=== PATIENT | female | born 1960 | race African-American/Black ===

== ENCOUNTER 2016-08-02 18:23 | Emergency (ER) | payer MEDICAID ==
[~2016-08-02] VITALS: Ht 170.2 cm; Wt 110.0 kg
[2016-08-02] MEDS ORDERED: AMLO2.5T45 PO (18:29)
[2016-08-02] MEDS ORDERED: KETOROLAC 60MG/2ML VIAL IM ONE (19:00)
[2016-08-02 19:04] VITALS: BP 132/89
== END 2016-08-02 22:55 | disposition home or self-care (01) ==
LOC: ER 18:23
DX: S83.004A Unspecified dislocation of right patella, initial encounter (principal); I10 Essential (primary) hypertension; X50.0XXA Overexertion from strenuous movement or load, initial encounter; Y93.89 Activity, other specified; Y92.89 Other specified places as the place of occurrence of the external cause; Y99.8 Other external cause status
CPT/HCPCS: 73564; 96372; 99284; J1885; L1830; Z7610

== ENCOUNTER 2022-01-10 06:58 | Emergency (ER) | payer MEDICAID ==
[~2022-01-10] VITALS: Ht 162.6 cm; Wt 59.0 kg
[~2022-01-10 06:58] MED LIST: AMLO2.5T45 PO
[2022-01-10] MEDS ORDERED: ONDANSETRON 4MG ODT PO ONE (07:15)
[2022-01-10] MEDS ORDERED: HYDROCODONE/ACETAMINOPHEN 5/325MG TABLET PO ONE (07:15)
[2022-01-10] MEDS ORDERED: IBUP-2029 MT (10:22)
[2022-01-10] MEDS ORDERED: METH-773 MT (10:22)
[2022-01-10 10:58] VITALS: BP 128/89
== END 2022-01-10 11:01 | disposition home or self-care (01) ==
LOC: ER 06:58
DX: M54.40 Lumbago with sciatica, unspecified side (principal); I10 Essential (primary) hypertension
CPT/HCPCS: 72100; 73562; 99284; Q0162

== ENCOUNTER 2022-07-08 10:51 | Emergency (ER) | payer MEDICAID, OTHER ==
[~2022-07-08] VITALS: Ht 167.6 cm; Wt 82.0 kg
[~2022-07-08 10:51] MED LIST changes: +IBUP-2029 MT; +METH-773 MT
[2022-07-08] MEDS ORDERED: IBUPROFEN 800MG TABLET PO ONE (16:15)
[2022-07-08] MEDS ORDERED: ACETAMINOPHEN 325MG TABLET PO ONE (16:15)
[2022-07-08] MEDS ORDERED: IBUPROFEN 400MG TABLET PO NR (16:30)
[2022-07-08] MEDS ORDERED: DICL75TA5 MT (17:12)
[2022-07-08] MEDS ORDERED: COLCHICINE 0.6MG TABLET PO NR (17:15)
[2022-07-08 17:54] VITALS: BP 138/82
== END 2022-07-08 17:56 | disposition home or self-care (01) ==
LOC: ER 10:51
DX: M10.9 Gout, unspecified (principal); M79.674 Pain in right toe(s); I10 Essential (primary) hypertension; Z88.0 Allergy status to penicillin; Z98.890 Other specified postprocedural states
CPT/HCPCS: 73660; 99284

== ENCOUNTER 2024-12-25 21:03 | Inpatient (IN) | payer OTHER ==
[~2024-12-25] VITALS: Ht 165.1 cm; Wt 74.4 kg
[~2024-12-25 21:03] MED LIST changes: -AMLO2.5T45 PO; +AMLO5TAB88 PO; +ASPI-1406 PO; +CLOP-31 PO; +GABA-1180 PO; -IBUP-2029 MT; +LEVO750T68 MT; +LIP40 PO; -METH-773 MT; +TOPUD MT; +TRAM50TA3 PO
[2024-12-25 21:38] VITALS: O2SAT 99
[2024-12-25 21:58] LABS: BASOPHILS % 0.7 % (0.0-2.0); EOSINOPHILS % 3.3 % (0.0-5.0); HEMATOCRIT. 28.7 % (36.0-48.0); HEMOGLOBIN. 9.3 g/dL (12.0-16.0); LYMPHOCYTES % 26.9 % (20.0-50.0); MEAN PLATELET VOLUME 7.2 fl (7.4-10.4); MONOCYTES % 11.9 % (2.0-8.0); NEUTROPHILS % 57.2 % (40.0-76.0); PLATELET 378 x1000/uL (130-400); RED BLOOD CELL COUNT 3.06 mill/uL (4.2-5.4); RED CELL DISTRIBUTION WIDTH 15.0 % (11.6-14.6)
[2024-12-25] MEDS: SODIUM CHLORIDE 0.9% (SEPSIS BOLUS) IV ONE (22:08)
[2024-12-25] MEDS: PIPERACILLIN/TAZO 3.375G/50ML 50 ML IV ONE (22:13)
[2024-12-25 22:25] LABS: CREATININE 0.9 mg/dL (0.6-1.0); UREA NITROGEN BLOOD 7 mg/dL (9-23)
[2024-12-25 22:33] VITALS: BP 143/80; PULSE 84; RESP 20; TEMP 35.8; O2SAT 96
[2024-12-25 22:35] LABS: C REACTIVE PROTEIN HIGH SENS 12.92 mg/l (<1.00)
[2024-12-25] MEDS ORDERED: CLINDAMYCIN 600 MG in DEXTROSE 5% WATER 50 ML IV ONE (23:00)
[2024-12-25] MEDS: VANCOMYCIN 1G PREMIX 200 ML IV ONE (23:58)
[2024-12-26 00:12] LABS: CLARITY URINE CLEAR (CLEAR); COLOR URINE YELLOW (YELLOW); GLUCOSE URINE NEGATIVE (NEGATIVE); KETONES URINE NEGATIVE (NEGATIVE); LEUKOCYTE ESTERASE URINE NEGATIVE (NEGATIVE); NITRITE URINE NEGATIVE (NEGATIVE); OCCULT BLOOD URINE NEGATIVE (NEGATIVE); PH URINE 6.5 (4.5-8.0); PROTEIN URINE NEGATIVE (NEGATIVE); SPECIFIC GRAVITY URINE 1.009 (1.005-1.030); UROBILINOGEN URINE 0.2 E.U./dL (0.2-1.0)
[2024-12-26] MEDS: HYDROCODONE/ACETAMINOPHEN 10/325MG TABLET PO PRN (01:37)
[2024-12-26] MEDS: CLINDAMYCIN 600MG PREMIX 50 ML IV SCH (01:50)
[2024-12-26 02:40] VITALS: BP 104/54; PULSE 103; RESP 18; TEMP 37.1964
[2024-12-26 04:00] VITALS: BP 105/52; PULSE 100; RESP 20; TEMP 36.2; O2SAT 97
[2024-12-26 08:00] VITALS: BP 104/53; PULSE 89; RESP 18; TEMP 36.4; O2SAT 97
[2024-12-26] MEDS: GABAPENTIN 300MG CAPSULE PO SCH (09:33)
[2024-12-26] MEDS: PIPERACILLIN/TAZO 3.375G/50ML 50 ML IV SCH (09:33)
[2024-12-26] MEDS ORDERED: ACETAMINOPHEN 325MG TABLET PO PRN (11:00)
[2024-12-26] MEDS ORDERED: ONDANSETRON HCL 4MG/2ML INJ IV PRN (11:00)
[2024-12-26] MEDS ORDERED: NALOXONE HCL 0.4MG/ML VIAL IV PRN (11:15)
[2024-12-26 12:00] VITALS: BP 102/57; PULSE 72; RESP 17; TEMP 36.2; O2SAT 100
[2024-12-26] MEDS: POTASSIUM CHLORIDE 20MEQ TABLET SR PO SCH (13:51)
[2024-12-26] MEDS: MEROPENEM 1G/100ML 100 ML IV SCH (14:18)
[2024-12-26] MEDS: VANCOMYCIN 1G PREMIX 200 ML IV SCH (14:20)
[2024-12-26 16:00] VITALS: BP 120/69; PULSE 70; RESP 18; TEMP 35.6; O2SAT 100
[2024-12-26 20:00] VITALS: BP 115/60; PULSE 70; RESP 18; TEMP 36.6; O2SAT 100
[2024-12-26] MEDS: ATORVASTATIN CALCIUM 40MG TABLET PO SCH (20:31)
[2024-12-27] VITALS: BP 118/68; PULSE 72; RESP 18; TEMP 36.9; O2SAT 100
[2024-12-27 04:00] VITALS: BP 110/70; PULSE 74; RESP 18; TEMP 36.3; O2SAT 98
[2024-12-27 07:41] LABS: CREATININE 0.8 mg/dL (0.6-1.0); UREA NITROGEN BLOOD 6 mg/dL (9-23)
[2024-12-27 07:54] LABS: BASOPHILS % 0.5 % (0.0-2.0); EOSINOPHILS % 11.0 % (0.0-5.0); HEMATOCRIT. 26.9 % (36.0-48.0); HEMOGLOBIN. 8.8 g/dL (12.0-16.0); LYMPHOCYTES % 24.0 % (20.0-50.0); MEAN PLATELET VOLUME 7.6 fl (7.4-10.4); MONOCYTES % 8.4 % (2.0-8.0); NEUTROPHILS % 56.1 % (40.0-76.0); PLATELET 343 x1000/uL (130-400); RED BLOOD CELL COUNT 2.90 mill/uL (4.2-5.4); RED CELL DISTRIBUTION WIDTH 15.2 % (11.6-14.6)
[2024-12-27 08:00] VITALS: BP 133/80; PULSE 84; RESP 18; TEMP 36.4; O2SAT 98
[2024-12-27] MEDS: GABAPENTIN 300MG CAPSULE PO SCH (08:46)
[2024-12-27] MEDS: CLOPIDOGREL 75MG TABLET PO SCH (08:46)
[2024-12-27] MEDS: ENOXAPARIN 40MG/0.4ML SYR SUBCUT SCH (08:47)
[2024-12-27] MEDS: ASPIRIN 81MG EC TABLET PO SCH (08:47)
[2024-12-27] MEDS: PANTOPRAZOLE SODIUM 40 MG/VIAL IV SCH (08:48)
[2024-12-27] MEDS: AMLODIPINE 5MG TABLET PO SCH (08:59)
[2024-12-27 12:00] VITALS: BP 138/68; PULSE 84; RESP 18; TEMP 36.3; O2SAT 98
[2024-12-27] MEDS: COLLAGENASE 250UNIT/GM OINT 30GM TOP SCH (14:38)
[2024-12-27 16:00] VITALS: BP 132/63; PULSE 81; RESP 18; TEMP 36.4; O2SAT 97
[2024-12-27 20:00] VITALS: BP 136/70; PULSE 77; RESP 19; TEMP 36.4; O2SAT 99
[2024-12-28] VITALS: BP 138/72; PULSE 78; RESP 18; TEMP 36.5; O2SAT 97
[2024-12-28 04:00] VITALS: BP 115/72; PULSE 72; RESP 18; TEMP 36.7; O2SAT 99
[2024-12-28 08:00] VITALS: BP 155/64; PULSE 78; RESP 18; TEMP 36.4; O2SAT 100
[2024-12-28] MEDS ORDERED: POLYMYXIN B SULFATE 500000 UNITS/VIAL ONE (10:45)
[2024-12-28] MEDS ORDERED: VANCOMYCIN HCL 1GM VIAL ONE (10:45)
[2024-12-28] MEDS ORDERED: BUPIVACAINE HCL/PF 0.5% (5MG/ML) 10ML ONE (10:46)
[2024-12-28] MEDS ORDERED: LIDOCAINE HCL 1% 10 MG/ML 10ML VIAL ONE (10:46)
[2024-12-28 12:00] VITALS: BP 148/43; PULSE 91; RESP 18; TEMP 35.4; O2SAT 100
[2024-12-28 12:33] LABS: CREATININE 0.8 mg/dL (0.6-1.0)
[2024-12-28 12:34] LABS: UREA NITROGEN BLOOD < 5 mg/dL (9-23)
[2024-12-28 12:38] LABS: INR 0.9
[2024-12-28 12:57] LABS: PLATELET 376 x1000/uL (130-400); RED BLOOD CELL COUNT 2.94 mill/uL (4.2-5.4); RED CELL DISTRIBUTION WIDTH 15.2 % (11.6-14.6)
[2024-12-28 16:00] VITALS: BP 151/63; PULSE 92; RESP 18; TEMP 36.3; O2SAT 100
[2024-12-28] MEDS ORDERED: DEXAMETHASONE 4MG/ML 1ML VIAL ONE (17:14)
[2024-12-28] MEDS ORDERED: FENTANYL CITRATE/PF 50MCG/ML 2ML VIAL ONE (17:14)
[2024-12-28] MEDS ORDERED: LIDOCAINE HCL 1% 20ML VIAL ONE (17:14)
[2024-12-28] MEDS ORDERED: PROPOFOL 200MG/20ML VIAL IV ONE (17:14)
[2024-12-28] MEDS ORDERED: ONDANSETRON HCL 4MG/2ML INJ ONE (17:14)
[2024-12-28] MEDS ORDERED: ACETAMINOPHEN 1000MG/100ML 100 ML IV ONE (17:18)
[2024-12-28] MEDS ORDERED: FAMOTIDINE 20MG/2ML VIAL IV ONE (17:19)
[2024-12-28] MEDS ORDERED: FENTANYL CITRATE/PF 50MCG/ML 2ML VIAL IV PRN (17:30)
[2024-12-28] MEDS ORDERED: ONDANSETRON HCL 4MG/2ML INJ IV PRN (17:30)
[2024-12-28] MEDS ORDERED: HYDROMORPHONE HCL/PF 1MG/ML INJ IV PRN (17:33)
[2024-12-28 20:00] VITALS: BP 119/73; PULSE 94; RESP 18; TEMP 36.6; O2SAT 98
[2024-12-29] VITALS: BP 133/69; PULSE 95; RESP 17; TEMP 36.4; O2SAT 98
[2024-12-29 04:00] VITALS: BP 156/67; PULSE 81; RESP 17; TEMP 37.3; O2SAT 97
[2024-12-29 08:00] VITALS: BP 148/49; PULSE 78; RESP 17; TEMP 36.4; O2SAT 100
[2024-12-29 12:00] VITALS: BP 138/61; PULSE 74; RESP 17; TEMP 36.4; O2SAT 100
[2024-12-29 16:00] VITALS: BP 125/51; PULSE 95; RESP 17; TEMP 36.4; O2SAT 100
[2024-12-29 20:00] VITALS: BP 102/51; PULSE 81; RESP 18; TEMP 36.6; O2SAT 97
[2024-12-30] VITALS: BP 107/47; PULSE 84; RESP 18; TEMP 36.5; O2SAT 98
[2024-12-30 04:00] VITALS: BP 123/55; PULSE 85; RESP 18; TEMP 36.3; O2SAT 100
[2024-12-30 08:00] VITALS: BP 139/63; PULSE 71; RESP 18; TEMP 36.3; O2SAT 100
[2024-12-30] MEDS ORDERED: HYDR-4009 MT (10:04)
[2024-12-30 12:00] VITALS: BP 124/63; PULSE 82; RESP 18; TEMP 36.2; O2SAT 99
[2024-12-30 15:31] VITALS: BP 124/124; PULSE 71; RESP 63; TEMP 97.1
[2024-12-30 16:00] VITALS: BP 141/57; PULSE 81; RESP 18; TEMP 36.2; O2SAT 100
== END 2024-12-30 16:34 | disposition home or self-care (01) | DRG 305 ==
LOC: ER 21:10 → EDBEDREQ 23:29 → ENRESERV 12-26 01:11 → 6WST 12-26 03:37 → 7EST 12-27 23:54
PROVIDERS: ADMIT Internal Medicine; ATTEND Internal Medicine
PROC: 0Y6N0Z9 Detachment at Left Foot, Partial 1st Ray, Open Approach (ICD-10-PCS; principal; 2024-12-28)
PROC: 0Y6N0ZB Detachment at Left Foot, Partial 2nd Ray, Open Approach (ICD-10-PCS; 2024-12-28)
PROC: 0Y6N0ZC Detachment at Left Foot, Partial 3rd Ray, Open Approach (ICD-10-PCS; 2024-12-28)
PROC: 0Y6N0ZD Detachment at Left Foot, Partial 4th Ray, Open Approach (ICD-10-PCS; 2024-12-28)
PROC: 0Y6N0ZF Detachment at Left Foot, Partial 5th Ray, Open Approach (ICD-10-PCS; 2024-12-28)
DX: E11.69 Type 2 diabetes mellitus with other specified complication (principal); E11.52 Type 2 diabetes mellitus with diabetic peripheral angiopathy with gangrene; E11.40 Type 2 diabetes mellitus with diabetic neuropathy, unspecified; M86.9 Osteomyelitis, unspecified; L03.116 Cellulitis of left lower limb; D64.9 Anemia, unspecified; E87.6 Hypokalemia; E11.621 Type 2 diabetes mellitus with foot ulcer; L97.529 Non-pressure chronic ulcer of other part of left foot with unspecified severity; F10.90 Alcohol use, unspecified, uncomplicated; Y90.8 Blood alcohol level of 240 mg/100 ml or more; F17.200 Nicotine dependence, unspecified, uncomplicated; I10 Essential (primary) hypertension; Z79.02 Long term (current) use of antithrombotics/antiplatelets; Z79.82 Long term (current) use of aspirin; Z82.49 Family history of ischemic heart disease and other diseases of the circulatory system; Z89.411 Acquired absence of right great toe; Z79.899 Other long term (current) drug therapy
CPT/HCPCS: 36415; 71045; 73630; 73700; 80048; 81003; 82962; 83605; 83880; 84145; 85025; 85027; 85651; 86141; 88304; 88311; 93923; 97116; 97162; 97530; 97535; 97542; 99291; A4606; G0378; J0665; J1100; J1308; J1650; J2003; J2185; J2405; J2470; J2543; J2704; J3010; J3373; J3490; J7030; J0131

== ENCOUNTER 2025-01-17 15:59 | Inpatient (IN) | payer OTHER ==
[~2025-01-17] VITALS: Ht 167.6 cm; Wt 68.1 kg
[~2025-01-17 15:59] MED LIST changes: +HYDR-4009 MT
[2025-01-17 16:30] VITALS: O2SAT 100
[2025-01-17 17:37] LABS: BASOPHILS % 0.5 % (0.0-2.0); EOSINOPHILS % 4.2 % (0.0-5.0); HEMATOCRIT. 27.0 % (36.0-48.0); HEMOGLOBIN. 8.9 g/dL (12.0-16.0); LYMPHOCYTES % 28.5 % (20.0-50.0); MEAN PLATELET VOLUME 7.5 fl (7.4-10.4); MONOCYTES % 8.4 % (2.0-8.0); NEUTROPHILS % 58.4 % (40.0-76.0); PLATELET 361 x1000/uL (130-400); RED BLOOD CELL COUNT 2.96 mill/uL (4.2-5.4); RED CELL DISTRIBUTION WIDTH 15.3 % (11.6-14.6)
[2025-01-17 17:45] LABS: INR 1.0
[2025-01-17 17:47] LABS: CREATININE 0.8 mg/dL (0.6-1.0); UREA NITROGEN BLOOD 6 mg/dL (9-23)
[2025-01-17 20:00] VITALS: BP 137/69; PULSE 71; RESP 18; TEMP 36.3; TEMP 36.4736; O2SAT 99
[2025-01-17] MEDS ORDERED: NALOXONE HCL 0.4MG/ML VIAL IV PRN (22:30)
[2025-01-17] MEDS: HYDROCODONE/ACETAMINOPHEN 10/325MG TABLET PO PRN (22:30)
[2025-01-18] VITALS: BP 119/61; PULSE 68; RESP 18; TEMP 36.4; O2SAT 100
[2025-01-18] MEDS: SODIUM CHLORIDE 0.9% 1,000 ML IV SCH (00:14)
[2025-01-18 04:00] VITALS: BP 119/51; PULSE 72; RESP 18; TEMP 36.2; O2SAT 97
[2025-01-18] MEDS: GABAPENTIN 300MG CAPSULE PO SCH (06:32)
[2025-01-18 07:32] LABS: BASOPHILS % 0.7 % (0.0-2.0); EOSINOPHILS % 5.9 % (0.0-5.0); HEMATOCRIT. 27.6 % (36.0-48.0); HEMOGLOBIN. 8.9 g/dL (12.0-16.0); LYMPHOCYTES % 36.4 % (20.0-50.0); MEAN PLATELET VOLUME 8.0 fl (7.4-10.4); MONOCYTES % 8.5 % (2.0-8.0); NEUTROPHILS % 48.5 % (40.0-76.0); PLATELET 330 x1000/uL (130-400); RED BLOOD CELL COUNT 3.02 mill/uL (4.2-5.4); RED CELL DISTRIBUTION WIDTH 15.7 % (11.6-14.6)
[2025-01-18 07:34] LABS: CREATININE 0.7 mg/dL (0.6-1.0); TRIGLYCERIDE 115 mg/dL (0-150); UREA NITROGEN BLOOD < 5 mg/dL (9-23)
[2025-01-18 07:35] LABS: LDL CHOLESTEROL 107 mg/dL (5-100)
[2025-01-18 08:00] VITALS: BP 139/52; PULSE 71; RESP 19; TEMP 36.4; O2SAT 100
[2025-01-18] MEDS: ASPIRIN 81MG TABLET PO SCH (08:28)
[2025-01-18] MEDS ORDERED: HEPARIN 1000 UNITS/ML 10ML ONE ×2 (13:17→16:58)
[2025-01-18] MEDS ORDERED: LIDOCAINE HCL 1% 20ML VIAL ONE ×2 (13:17→15:58)
[2025-01-18] MEDS ORDERED: IODIXANOL 320 MG/ML 150ML BOTTLE IV ONE (13:18)
[2025-01-18] MEDS ORDERED: FENTANYL CITRATE/PF 50MCG/ML 2ML VIAL ONE ×2 (13:32→16:12)
[2025-01-18] MEDS ORDERED: MIDAZOLAM HCL 2 MG/2 ML VIAL ONE ×2 (13:32→16:07)
[2025-01-18] MEDS ORDERED: HYDROMORPHONE HCL/PF 2MG/ML INJ ONE ×2 (14:33→17:22)
[2025-01-18] MEDS ORDERED: DIPHENHYDRAMINE 50MG/ML VIAL ONE (14:40)
[2025-01-18] MEDS ORDERED: VERAPAMIL HCL 2.5 MG/1 ML 2ML VIAL IV ONE (15:30)
[2025-01-18] MEDS ORDERED: CEFAZOLIN SODIUM 1000MG/VIAL ONE (16:22)
[2025-01-18] MEDS ORDERED: BACITRACIN 14GM TUBE TOP SCH (18:00)
[2025-01-18] MEDS ORDERED: IODIXANOL 320MG/ML 100 ML BOTTLE IV ONE (18:15)
[2025-01-18] MEDS ORDERED: ONDANSETRON HCL 4MG/2ML INJ ONE (18:18)
[2025-01-18] MEDS ORDERED: CLOPIDOGREL 75MG TABLET ONE (19:25)
[2025-01-18 20:25] VITALS: BP 116/81; PULSE 90; RESP 12; TEMP 36.7; O2SAT 84
[2025-01-19] VITALS: BP 131/71; PULSE 89; RESP 12; TEMP 36.6; O2SAT 100
[2025-01-19 04:00] VITALS: BP 137/98; PULSE 106; RESP 17; TEMP 36.4; O2SAT 99
[2025-01-19 08:00] VITALS: BP 127/66; PULSE 101; RESP 14; TEMP 36.9; O2SAT 100
[2025-01-19] MEDS ORDERED: CHOL2000 (08:29)
[2025-01-19] MEDS: CLOPIDOGREL 75MG TABLET PO SCH (08:33)
[2025-01-19] MEDS ORDERED: COLLAGENASE 250UNIT/GM OINT 30GM TOP SCH (09:00)
[2025-01-19] MEDS: COLLAGENASE 250UNIT/GM OINT 30GM TOP SCH (10:32)
[2025-01-19 12:00] VITALS: BP 102/60; PULSE 85; RESP 20; TEMP 36.7; O2SAT 100
[2025-01-19 16:00] VITALS: BP 108/56; PULSE 102; RESP 20; TEMP 36.9; O2SAT 100
[2025-01-19] MEDS: AMOXICILLIN/POTASSIUM CLAVULANATE 875/125MG TAB PO SCH (17:22)
[2025-01-19 20:00] VITALS: BP 106/67; PULSE 105; RESP 18; TEMP 36.8; O2SAT 98
[2025-01-19] MEDS ORDERED: ONDANSETRON HCL 4MG/2ML INJ IV PRN (20:45)
[2025-01-20] VITALS: BP 115/50; PULSE 98; RESP 14; TEMP 36.6; O2SAT 100
[2025-01-20 04:00] VITALS: BP 97/59; PULSE 89; RESP 18; TEMP 36.6; O2SAT 100
[2025-01-20 08:00] VITALS: BP 102/82; PULSE 94; RESP 18; TEMP 36.4; O2SAT 100
[2025-01-20] MEDS ORDERED: AMOX1TAB16 MT (09:12)
[2025-01-20] MEDS ORDERED: SULF1TAB48 MT (09:20)
[2025-01-20] MEDS: SULFAMETHOXAZOLE/TRIMETHOPRIM 800/160MG TABLET PO SCH (09:55)
[2025-01-20 10:39] VITALS: BP 102/82; PULSE 94; RESP 18; TEMP 97.5
[2025-01-20] MEDS: FUROSEMIDE 40MG/4ML VIAL IVP SCH (11:38)
[2025-01-20 12:00] VITALS: BP 96/57; PULSE 91; RESP 18; TEMP 36.6; O2SAT 99
[2025-01-20] MEDS: MORPHINE SULFATE 4 MG/ML INJ (FOR IV/IM USE) IV SCH ×2 (13:25→13:32)
[2025-01-20 16:00] VITALS: BP 94/65; PULSE 95; RESP 19; TEMP 36.8; O2SAT 99
== END 2025-01-20 17:57 | disposition home health service (06) | DRG 181 ==
LOC: ER 15:59 → EDBEDREQTM 18:22 → EDBEDREQ 18:22 → ENRESERV 19:56 → 6EST 20:03 → 3WST 01-18 19:59
PROVIDERS: ADMIT Internal Medicine; ATTEND Internal Medicine
PROC: 047L3ZZ Dilation of Left Femoral Artery, Percutaneous Approach (ICD-10-PCS; principal; 2025-01-18)
PROC: B41G1ZZ Fluoroscopy of Left Lower Extremity Arteries using Low Osmolar Contrast (ICD-10-PCS; 2025-01-18)
PROC: 047J3ZZ Dilation of Left External Iliac Artery, Percutaneous Approach (ICD-10-PCS; 2025-01-18)
PROC: 047L3ZZ Dilation of Left Femoral Artery, Percutaneous Approach (ICD-10-PCS; 2025-01-18)
PROC: 047N3ZZ Dilation of Left Popliteal Artery, Percutaneous Approach (ICD-10-PCS; 2025-01-18)
DX: I70.262 Atherosclerosis of native arteries of extremities with gangrene, left leg (principal); D64.9 Anemia, unspecified; I10 Essential (primary) hypertension; L97.529 Non-pressure chronic ulcer of other part of left foot with unspecified severity; E87.6 Hypokalemia; F17.210 Nicotine dependence, cigarettes, uncomplicated; F10.10 Alcohol abuse, uncomplicated; Z79.02 Long term (current) use of antithrombotics/antiplatelets; Z79.82 Long term (current) use of aspirin; Z89.411 Acquired absence of right great toe; Z79.899 Other long term (current) drug therapy
CPT/HCPCS: 36415; 37224; 37228; 73630; 75820; 80048; 80061; 85025; 85347; 86850; 86900; 93005; 99291; A4565; A4606; A6449; C1725; C1769; C1887; C1893; C1894; J0690; J1171; J1200; J1644; J1938; J2003; J2250; J2270; J2405; J3010; J3490; Q9967